=== PATIENT | female | born 1965 | race Caucasian/White ===

== ENCOUNTER 2018-02-01 05:47 | Day surgery (SDC) | payer OTHER ==
[~2018-02-01] VITALS: Ht 162.6 cm; Wt 76.2 kg
[~2018-02-01 05:47] MED LIST: DAILY VALUE1 EACH PO; FLONASE ALLERG9.9 ML BOTH NARES; KEFLEX250 MG PO; LINZESS290 MCG PO; LIPITOR40 MG PO; TAMOXIFEN CITRA20 MG PO; WELLBUTRIN XL300 MG PO; ZOCOR40 MG PO
[2018-02-01 06:56] VITALS: BP 132/86
[2018-02-01 09:10] VITALS: BP 125/98
[2018-02-01 10:00] VITALS: BP 132/74
== END 2018-02-01 10:10 | disposition home or self-care (01) ==
LOC: SDC 05:47
PROC: 0UDB8ZX Extraction of Endometrium, Via Natural or Artificial Opening Endoscopic, Diagnostic (ICD-10-PCS; principal; 2018-02-01)
DX: N87.9 Dysplasia of cervix uteri, unspecified (principal); N85.6 Intrauterine synechiae; Z85.3 Personal history of malignant neoplasm of breast; N95.0 Postmenopausal bleeding; E78.00 Pure hypercholesterolemia, unspecified; N85.8 Other specified noninflammatory disorders of uterus
CPT/HCPCS: 88305; J0131; J0330; J0690; J1100; J1170; J1885; J2250; J2405; J3010